=== PATIENT | female | born 1965 | race Caucasian/White ===

== ENCOUNTER 2018-01-14 16:52 | Emergency (ER) | payer BC ==
[2018-01-14 18:07] VITALS: BP 144/89
--- NOTE | 2018-01-14 18:16 | UC ---
Complaint Female HPI - HPI Summary HPI Summary: dysuria and frequency began last night, - History Of Current Complaint Chief Complaint: [facility]CGU Stated Complaint: URINARY Time Seen by Provider: 01/14/18 18:09 Hx Obtained From: Patient ?: No Onset/Duration: Sudden Onset, Lasting Days - 1 Timing: Constant Pain Intensity: 5 Pain Scale Used: 0-10 Numeric Character: Burning Aggravating Factor(s): Urination Alleviating Factor(s): Nothing - Allergies/Home Medications Allergies/Adverse Reactions: Allergies Allergy/AdvReac Type Severity Reaction Status Date / Time No Known Allergies Allergy Verified 01/14/18 18:07 Home Medications: Home Medications Omeprazole CAP* [Prilosec CAP* 20 MG] 20 mg PO DAILY 01/14/18 [History Confirmed 01/14/18] buPROPion TAB* [Wellbutrin TAB*] 50 mg PO DAILY 01/14/18 [History Confirmed 03/26] PMH/Surg Hx/FS Hx/Imm Hx Previously Healthy: No GI/ History: Gastroesophageal Reflux Psychological History: Depression - Surgical History Surgical History: Yes Surgery Procedure, Year, and Place: hysterectomy. T & A - Family History Known Family History: Positive: None - Social History Occupation: Employed Full-time Lives: With Family Alcohol Use: Occasionally Substance Use Type: None Smoking Status (MU): Never Smoked Tobacco Review of Systems Constitutional: Negative Skin: Negative Eyes: Negative ENT: Negative Respiratory: Negative Cardiovascular: Negative Gastrointestinal: Negative Genitourinary: Dysuria, Frequency Motor: Negative Neurovascular: Negative Musculoskeletal: Negative Neurological: Negative Psychological: Negative Is Patient Immunocompromised?: No All Other Systems Reviewed And Are Negative: Yes Physical Exam Triage Information Reviewed: Yes Appearance: Well-Appearing, No Pain Distress, Well-Nourished Vital Signs: Initial Vital Signs Temp 98.5 F 01/14/18 17:53 Pulse 77 01/14/18 17:53 Resp 16 01/14/18 17:53 BP 144/89 01/14/18 17:53 Pulse Ox 100 01/14/18 17:53 Vital Signs Reviewed: Yes Eye Exam: Normal Eyes: Positive: Conjunctiva Clear ENT Exam: Normal ENT: Positive: Normal ENT inspection, Hearing grossly normal, TMs normal. Negative: Nasal congestion, Trismus, Muffled voice, Hoarse voice, Dental tenderness Dental Exam: Normal Neck exam: Normal Neck: Positive: Supple, Nontender Respiratory Exam: Normal Respiratory: Positive: Chest non-tender, Lungs clear, No respiratory distress, No accessory muscle use Cardiovascular Exam: Normal Cardiovascular: Positive: RRR, No Murmur, Brisk Capillary Refill, Tachycardia Abdominal Exam: Other Abdomen Description: Positive: No Organomegaly, Soft, Other: - suprapubic discomfort. Negative: CVA Tenderness (R), CVA Tenderness (L) Bowel Sounds: Positive: Present Musculoskeletal Exam: Normal Musculoskeletal: Positive: Strength Intact, ROM Intact, No Edema Neurological Exam: Normal Neurological: Positive: Alert, Muscle Tone Normal Psychological Exam: Normal Skin Exam: Normal Diagnostics - Laboratory Diagnostic Studies Completed/Ordered: UA-+nitrites, +1 leukoesterase, +blood Complaint Female Dx - Course Course Of Treatment: macrobid, pyridium, increase fluids follow with pcp prn - Differential Dx/Diagnosis Provider Diagnoses: UTI Discharge - Sign-Out/Discharge Documenting (check all that apply): Discharge/Admit/Transfer - Discharge Plan Condition: Stable Disposition: HOME Prescriptions: Fluconazole 150 MG (NF) [Diflucan 150 mg (NF)] 150 mg PO ONCE #1 tab Nitrofurantoin Monohyd/M-Cryst [Macrobid 100 mg Capsule] 100 mg PO BID #10 cap Phenazopyridine TAB* [Pyridium 100 mg TAB*] 100 mg PO TID PRN #9 tab PRN Reason: urinry pain and burning Patient Education Materials: Phenazopyridine (By mouth), Urinary Tract Infection in Women (ED), Hypertension (ED) Referrals: No Primary Care Phys,NOPCP [Primary Care Provider] - Additional Instructions: Follow with your doctor in [place] or return as needed - Billing Disposition and Condition Condition: STABLE Disposition: Home
== END 2018-01-14 18:34 | disposition home or self-care (01) ==
LOC: UCCORT 16:52
DX: N39.0 Urinary tract infection, site not specified (principal); B96.20 Unspecified Escherichia coli [E. coli] as the cause of diseases classified elsewhere; F32.9 Major depressive disorder, single episode, unspecified; K21.9 Gastro-esophageal reflux disease without esophagitis
CPT/HCPCS: 81003; 87077; 87086; 87186; 99202; G0463